=== PATIENT | male | born 1955 | race Caucasian/White ===

== ENCOUNTER 2022-12-29 18:20 | Emergency (ER) | payer OTHER ==
[~2022-12-29] VITALS: Ht 167.6 cm; Wt 83.9 kg
[2022-12-29] MEDS ORDERED: NEURONTIN300 MG PO (18:27)
[2022-12-29] MEDS ORDERED: CLEOCIN HCL300 MG PO (22:59)
[2022-12-29] MEDS ORDERED: LOTRIMIN ULTRA12 GM TOP (22:59)
[2022-12-29] MEDS ORDERED: FLUCONAZOLE100 MG PO (22:59)
[2022-12-29] MEDS ORDERED: MUPIROCIN15 GM TOP (22:59)
== END 2022-12-29 23:20 | disposition home or self-care (01) ==
LOC: ER 18:20 → EDBD 18:24 → ER 23:20
DX: M79.605 Pain in left leg (principal); M79.661 Pain in right lower leg; Z91.013 Allergy to seafood; M79.604 Pain in right leg; M51.36 Other intervertebral disc degeneration, lumbar region

== ENCOUNTER → 2025-04-03 09:41 | Outpatient (CLI) | payer OTHER ==
[~2025-04-03 09:41] MED LIST: CLEOCIN HCL300 MG PO; FLUCONAZOLE100 MG PO; LOTRIMIN ULTRA12 GM TOP; MUPIROCIN15 GM TOP; NEURONTIN300 MG PO
== END | disposition home or self-care (01) ==
LOC: NUCLEAR 09:41
DX: I73.9 Peripheral vascular disease, unspecified (principal)